=== PATIENT | male | born 1995 | race Caucasian/White ===

== ENCOUNTER 2017-07-18 20:28 | Emergency (ER) | payer OTHER ==
[~2017-07-18] VITALS: Ht 177.8 cm; Wt 84.1 kg
[2017-07-18] MEDS ORDERED: TYLE325T5 PO (20:44)
[2017-07-18] MEDS ORDERED: IBUP-1114 PO (20:44)
[2017-07-18] MEDS ORDERED: NAPR500T3 PO (20:44)
[2017-07-18] MEDS ORDERED: TRIA1CR TOP (22:58)
[2017-07-18] MEDS ORDERED: diphenhydrAMINE 50 MG CAP PO ONE (23:00)
[2017-07-18] MEDS ORDERED: predniSONE 20 MG TAB PO ONE (23:00)
[2017-07-18 23:04] VITALS: BP 123/50
== END 2017-07-18 23:05 | disposition home or self-care (01) ==
LOC: M ED 20:28
DX: R21 Rash and other nonspecific skin eruption (principal); T59.891A Toxic effect of other specified gases, fumes and vapors, accidental (unintentional), initial encounter; Y92.9 Unspecified place or not applicable; Y93.9 Activity, unspecified

== ENCOUNTER 2018-12-31 13:31 | Emergency (ER) | payer OTHER ==
[~2018-12-31] VITALS: Ht 177.8 cm; Wt 88.6 kg
[~2018-12-31 13:31] MED LIST: IBUP-1114 PO; NAPR-885 PO; TRIA0.1C60 TOP; TYLE325T5 PO
[2018-12-31 13:32] VITALS: BP 161/83
--- NOTE | 2018-12-31 14:29 | REP ---
Clinical: Pain with heavy lifting . Technique: Internal rotation, external rotation, and Y view right shoulder . Findings: No acute fracture or dislocation. The acromioclavicular and glenohumeral joints are intact. No periarticular calcifications or degenerative changes are appreciated. Sub acromial space is normal. Surrounding soft tissues are unremarkable. Impression: Normal right shoulder radiographs. Electronically Signed by Arun Allen MD 12/31/2018 02:22 P
[2018-12-31] MEDS ORDERED: NAPR-885 PO (14:53)
[2018-12-31] MEDS ORDERED: ROBA500T PO (14:53)
[2018-12-31] MEDS ORDERED: NAPROXEN 250 MG TAB PO ONE (15:00)
[2018-12-31] MEDS ORDERED: METHOCARBAMOL 500 MG TAB PO ONE (15:00)
== END 2018-12-31 15:08 | disposition home or self-care (01) ==
LOC: M ED 13:31
DX: S49.91XA Unspecified injury of right shoulder and upper arm, initial encounter (principal); X50.0XXA Overexertion from strenuous movement or load, initial encounter; Y92.89 Other specified places as the place of occurrence of the external cause; Y99.1 Military activity

== ENCOUNTER 2019-11-01 18:26 | Emergency (ER) | payer OTHER ==
[~2019-11-01] VITALS: Ht 177.8 cm; Wt 88.6 kg
[~2019-11-01 18:26] MED LIST changes: +ROBA500T PO
[2019-11-01] MEDS ORDERED: IBUP200C25 PO (18:39)
[2019-11-01] MEDS ORDERED: MUCI600T31 PO (19:34)
[2019-11-01 19:46] LABS: INFLUENZA A AMPLIFICATION NEGATIVE (NEGATIVE); INFLUENZA B AMPLIFICATION NEGATIVE (NEGATIVE)
[2019-11-01] MEDS ORDERED: ONDA4TAB6 PO (22:06)
[2019-11-01 22:12] VITALS: BP 144/73
== END 2019-11-01 22:15 | disposition home or self-care (01) ==
LOC: M ED 18:26
DX: J06.9 Acute upper respiratory infection, unspecified (principal); Z72.0 Tobacco use